=== PATIENT | female | born 2000 | race Caucasian/White ===

== ENCOUNTER 2021-07-19 11:18 | Emergency (ER) | payer SELFPAY ==
[~2021-07-19] VITALS: Ht 165.1 cm; Wt 46.0 kg
[2021-07-19 11:58] VITALS: BP 105/65
[2021-07-19] MEDS ORDERED: ACETAMINOPHEN 325MG TABLET PO ONE (13:15)
[2021-07-19 14:35] LABS: BASOPHILS % 0.2 % (0.0-2.0); EOSINOPHILS % 0.3 % (0.0-5.0); HEMATOCRIT. 41.5 % (36.0-48.0); HEMOGLOBIN. 13.6 g/dL (12.0-16.0); LYMPHOCYTES % 13.7 % (20.0-50.0); MEAN CORPUSCULAR HEMOGLOBIN 30.4 pg (28.0-32.0); MEAN CORPUSCULAR VOLUME 92.6 fL (81.0-99.0); MEAN PLATELET VOLUME 7.1 fl (7.4-10.4); MONOCYTES % 5.7 % (2.0-8.0); NEUTROPHILS % 80.1 % (40.0-76.0); PLATELET 308 x1000/uL (130-400); RED BLOOD CELL COUNT 4.48 mill/uL (4.2-5.4); RED CELL DISTRIBUTION WIDTH 12.2 % (11.6-14.6)
[2021-07-19 14:41] LABS: CHLORIDE 104 mEq/L (98-107)
[2021-07-19 15:05] LABS: B-HCG QUANTITATIVE 77745 mIU/mL (<3)
[2021-07-19 15:29] LABS: CLARITY URINE CLEAR (CLEAR); COLOR URINE YELLOW (YELLOW); KETONES URINE 4+ (NEGATIVE); LEUKOCYTE ESTERASE URINE NEGATIVE (NEGATIVE); NITRITE URINE NEGATIVE (NEGATIVE); OCCULT BLOOD URINE NEGATIVE (NEGATIVE); PROTEIN URINE NEGATIVE (NEGATIVE); SPECIFIC GRAVITY URINE 1.021 (1.005-1.030); UROBILINOGEN URINE 0.2 E.U./dL (0.2-1.0)
== END 2021-07-19 16:25 | disposition home or self-care (01) ==
LOC: ER 11:18
DX: O20.0 Threatened abortion (principal); O26.891 Other specified pregnancy related conditions, first trimester; D72.829 Elevated white blood cell count, unspecified; Z3A.11 11 weeks gestation of pregnancy
CPT/HCPCS: 36415; 76801; 80053; 81003; 81025; 84702; 85025; 86850; 86900; 99284

== ENCOUNTER 2023-11-14 09:53 | Emergency (ER) | payer MEDICAID, OTHER ==
[~2023-11-14] VITALS: Ht 165.1 cm; Wt 46.5 kg
[2023-11-14 09:59] VITALS: O2SAT 99
[2023-11-14] MEDS ORDERED: IBUP-2029 MT (11:00)
[2023-11-14] MEDS ORDERED: SULF1TAB48 MT (11:00)
[2023-11-14 13:25] VITALS: BP 104/78; PULSE 78; RESP 18; TEMP 98.6
== END 2023-11-14 13:49 | disposition home or self-care (01) ==
LOC: ER 09:53
DX: L72.3 Sebaceous cyst (principal)
CPT/HCPCS: 81025; 99283

== ENCOUNTER 2023-11-16 07:34 | Emergency (ER) | payer MEDICAID, OTHER ==
[~2023-11-16] VITALS: Ht 165.1 cm; Wt 49.0 kg
[~2023-11-16 07:34] MED LIST: IBUP-2029 MT; SULF1TAB48 MT
[2023-11-16 07:41] VITALS: O2SAT 96
[2023-11-16] MEDS: LIDOCAINE HCL 1% 20ML VIAL (Pyxis) INJ INFIL ONE (12:00)
[2023-11-16] MEDS ORDERED: BACITRACIN ZINC OINT UDPKT TOP ONE (12:29)
[2023-11-16] MEDS: BACITRACIN ZINC OINT UDPKT TOP ONE (12:56)
[2023-11-16] MEDS: BACITRACIN ZINC OINT UDPKT TOP NR (13:15)
[2023-11-16 13:42] VITALS: BP 97/45; PULSE 76; RESP 16; TEMP 98.3
== END 2023-11-16 13:44 | disposition home or self-care (01) ==
LOC: ER 07:44
DX: J86.9 Pyothorax without fistula (principal)
CPT/HCPCS: 10060; 99282; J3490; Z7610 ×3